=== PATIENT | male | born 1975 | race Caucasian/White ===

== ENCOUNTER 2019-08-28 08:23 | Emergency (ER) | payer OTHER ==
[~2019-08-28] VITALS: Ht 182.9 cm; Wt 109.8 kg
[~2019-08-28 08:23] MED LIST: FLUTICASONE PRO16 GM XX; METOPROLOL TART25 MG PO; NICOTINE LOZENGE4 MG BUCCAL; PRILOSEC OTC20 MG PO
--- NOTE | 2019-08-29 06:17 | EKG ---
[facility] [address] [facility] [place] [address] Signed Normal sinus rhythm Prolonged QT Abnormal ECG When compared with ECG of 22-FEB-2017 20:33, Sinus rhythm has replaced Atrial fibrillation Vent. rate has decreased BY 86 BPM Confirmed by ROBY BANUELOS MD ([id number]) on 08/29/2019 6:17:31 AM Electronically Signed By: ROBY BANUELOS MD 08/29/19 0617 PATIENT NAME: OLIVERCHRISTY LEE Electrocardiogram DATE OF : 73 PHYSICIAN: ROBY BANUELOS MD REPORT #: [id number] REPORT IS CONFIDENTIAL AND NOT TO BE RELEASED WITHOUT AUTHORIZATION
== END 2019-08-28 11:37 | disposition home or self-care (01) ==
LOC: ED 08:23
DX: R00.2 Palpitations (principal); R07.89 Other chest pain; I48.91 Unspecified atrial fibrillation; F17.200 Nicotine dependence, unspecified, uncomplicated; Z79.899 Other long term (current) drug therapy
CPT/HCPCS: 71046; 80053; 83735; 84484; 85025; 93005; 93010; 99285-25